=== PATIENT | male | born 1995 | race Caucasian/White ===

== ENCOUNTER 2016-11-28 00:16 | Emergency (ER) | payer BC ==
[~2016-11-28] VITALS: Ht 171.5 cm; Wt 76.7 kg
[2016-11-28 00:21] VITALS: Ht 171.5 cm; Wt 76.7 kg
[2016-11-28] MEDS ORDERED: MULT-506 PO (00:27)
[2016-11-28] MEDS ORDERED: KETOROLAC TROMETHAMINE 60 MG/2 ML VIAL IM STA (00:34)
[2016-11-28] MEDS ORDERED: CYCLOBENZAPRINE HCL 5 MG TAB PO STA (00:34)
--- NOTE | 2016-11-28 01:08 | EMERGENCY ROOM VISIT NOTE ---
History Report prepared by Yuriy: Yoav Liriano Under the Supervision of: Dr. Kelly Mendosa D.O. First contact with patient: 00:19 Chief Complaint: LEG PAIN,LEG INJURY Stated Complaint: PAIN IN LEFT HAMSTRING History of Present Illness The patient is a 21 year old male who presents to the Emergency Room with complaints of constant left leg pain that started prior to arrival. He rates his pain as a 5/10 in severity. He reports that his pain is worsened with extending his leg straight. The patient states that he was competing in a drag show at [employer] and jumped off of a three foot table. He reports that he did a forward split and landed on the ground. He states that as he got he his leg tensed up and he fell back down. The patient reports that his pain in his left posterior leg began to worsen and then remained constant. He admits that he also received an abrasion to his right knee. The patient reports that he did not do this kind of split in the past. He is accompanied by his friend who said that he heard a snap when the patient did the split. The patient denies a leg injury in the past, any alcohol consumption, abdominal pain, hitting his head, LOC, and a history of heart problems. Source of History: patient Onset: prior to arrival Position: leg (left) Symptom Intensity: 5/10 Timing: constant Modifying Factors (Worsening): other (extending his left leg) Associated Symptoms: No LOC, No abdominal pain Review of Systems See HPI for pertinent positives & negatives. A total of 10 systems reviewed and were otherwise negative. Past Medical & Surgical The patient reports no medical or surgical history. Family History Cancer Diabetes mellitus Hypertension Social History Smoking Status: Never Smoker Smokeless Tobacco Use: No Alcohol Use: occasionally Drug Use: none Housing Status: lives with roommate Occupation Status: [employer] Current/Historical Medications Scheduled Multivitamin (Multivitamin), 1 TAB PO DAILY Scheduled PRN Oxycodone/Acetaminophen 5MG/325MG (Percocet 5MG/325MG), 1-2 TABLETS PO Q4H PRN for Pain Allergies Coded Allergies: Shellfish (Verified Allergy, Severe, HIVES-SOB, 11/28/16) Cat Dander (Verified Allergy, Intermediate, ITCHY EYES, SNEEZING, RUNNY NOSE, 11/28/16) Physical Exam Vital Signs Date Time Temp Pulse Resp B/P (MAP) Pulse Ox O2 Delivery O2 Flow Rate FiO2 11/28/16 06:00 37.4 74 18 136/81 97 11/28/16 05:55 74 18 136/81 97 Room Air 11/28/16 04:55 94 18 141/75 98 Room Air 11/28/16 03:13 88 16 110/72 98 Room Air 11/28/16 01:37 90 18 149/89 98 Room Air 11/28/16 00:21 37.4 98 16 146/83 98 Room Air Physical Exam HEENT: Head - normocephalic and atraumatic Pupils are equal, round, and reactive to light. Extraocular eye muscles are intact, and sclera are anicteric. Nose - moist nasal mucosa without discharge. Mouth - moist buccal mucosa. Neck: Supple; no cervical lymphadenopathy Heart: Regular rate and rhythm. There is a normal S1 and S2 with no murmurs, clicks, or gallops appreciated. Lungs: Clear to auscultation bilaterally with no wheezes, rales, or rhonchi. Abdomen: Soft, completely nontender, nondistended, with good bowel sounds. There are no palpable pulsatile masses or hepatosplenomegaly. There is no guarding, rigidity, or rebound noted. Extremities: No evidence of cyanosis, clubbing, or edema. There are easily palpable peripheral pulses. The patient has significant pain with palpation over the posterior mid hamstring. He has significant edema in that area. There is currently no discoloration to the skin. He has exquisite tenderness with flexion at the knee on the left. Skin: warm and dry with good turgor and no rashes. Medical Decision & Procedures ER Provider Diagnostic Interpretation: Radiology results as stated below per my review and the radiologist's interpretation: MRI - LEFT HAMSTRING Lateral hamstring avulsion involving at least the long head of biceps and the semi-tendinosis. Tendon stew retracted more than 3 cm from the tuberosity. Extensive adjacent fluid. Radiologist: Zeke Doran M.D. Medications Administered Medications (Trade) Dose Ordered Sig/Janna Route Start Time Stop Time Status Last Admin Dose Admin Ketorolac Tromethamine (Toradol Inj) 60 mg NOW STAT IM 11/28/16 00:34 11/28/16 00:35 DC 11/28/16 00:39 60 MG Cyclobenzaprine HCl (Flexeril Tab) 5 mg NOW STAT PO 11/28/16 00:34 11/28/16 00:35 DC 11/28/16 00:39 5 MG Hydromorphone HCl (Dilaudid Inj) 1 mg NOW STAT IV 11/28/16 01:15 11/28/16 01:16 DC 11/28/16 01:29 1 MG Oxycodone/ Acetaminophen (Percocet 5/ 325MG Home Pack) 1 homepack UD ONCE PO 11/28/16 05:45 11/28/16 05:46 DC 11/28/16 05:45 1 HOMEPACK Procedure Medications administered include: Flexeril Tab 5 mg PO, Toradol Injection 60 mg IM, Dilaudid Injection 1 mg IV ED Course 0025: The patient was evaluated in room A11B. A complete history and physical examination were performed. Nursing notes and previous electronic medical records were reviewed. 0034: Ordered Flexeril Tab 5 mg PO, Toradol Injection 60 mg IM. 0115: The patient continued to complain of severe pain and an IV lock was initiated. I Ordered Dilaudid Injection 1 mg IV. The patient went for MRI of the left hamstring 0313: I reevaluated the patient and he feels better after the pain medication. 0515: I discussed the patient's case with Dr. Foster, [facility]. He reports that the patient is able to go home with pain medication. He recommends that the patient has an outpatient follow up with [facility]. 0520: Upon reevaluation, the patient is resting comfortably. I discussed findings and results with the patient. I discussed his treatment plan, which includes a knee immobilizer to remind him not to flex his knee. He verbalized agreement of the treatment plan. The patient was discharged home. Medical Decision The patient is a 21 year old male who presents to the ED with complaints of constant left leg pain that started prior to arrival. Differential diagnosis includes hamstring rupture and hamstring strain. The patient jumped from a table landing a splits on the floor causing significant trauma to the left hamstring. MRI showed significant avulsion to the left hamstring. The patient was given Percocet to use for pain. He was warned of the hazards of opioid addiction. I've encouraged him to call [facility] for follow-up as directed by Dr. Foster. He will use crutches and keep the left hamstring iced. [place] Drug [place] Search Results: patient reviewed within database, no issues identified Medication Reconcilliation Current Medication List: was personally reviewed by me Blood Pressure Screening Patient's blood pressure: Elevated blood pressure Blood pressure disposition: Elevated BP felt to be situational (due to pain) Consults Time Called: 514 Consulting Physician: Dr. Foster, [facility] Returned Call: 05 I discussed the patient's case with Dr. Foster, [facility]. He reports that the patient is able to go home with pain medication. He recommends that the patient has an outpatient follow up with [facility]. Impression Primary Impression: Avulsion of left hamstring muscle Scribe Attestation The scribe's documentation has been prepared under my direction and personally reviewed by me in its entirety. I confirm that the note above accurately reflects all work, treatment, procedures, and medical decision making performed by me. Departure Information Dispostion Home / Self-Care Prescriptions Oxycodone/Acetaminophen 5MG/325MG (PERCOCET 5MG/325MG) Tab 1-2 TABLETS PO Q4H Y for Pain, #20 TAB Prov: Kelly Mendosa D.O. 11/28/16 Forms HOME CARE DOCUMENTATION FORM, IMPORTANT VISIT INFORMATION Patient Instructions My [facility] [employer] Additional Instructions Rest. Wear the knee immobilizer only for comfort while ambulating. Use crutches to ambulate. Percocet - 1-2 tabs. every 4 hours for pain. Apply ice to hamstring Problem Qualifiers Primary Impression: Avulsion of left hamstring muscle Encounter type: initial encounter Qualified Codes: S76.392A - Other specified injury of muscle, fascia and tendon of the posterior muscle group at thigh level, left thigh, initial encounter
[2016-11-28] MEDS ORDERED: HYDROmorphone INJ 1 MG/ML SYR IV STA (01:15)
[2016-11-28] MEDS ORDERED: OXYC-57 PO (05:32)
[2016-11-28] MEDS ORDERED: PERCOCET HOME PACK PO ONE (05:45)
[2016-11-28 06:00] VITALS: BP 136/81; PULSE 74; TEMP 37.4; O2SAT 97
--- NOTE | 2016-11-28 06:44 | DIAGNOSTIC IMAGING REPORT ---
MRI OF THE LEFT THIGH WITHOUT CONTRAST CLINICAL HISTORY: Left hamstring pain. COMPARISON STUDY: No previous studies for comparison. TECHNIQUE: Utilizing 1.5 Adelina magnet and dedicated coil, multiplanar, multiecho imaging of the left thigh with specific attention to the hamstrings was performed without intravenous contrast. FINDINGS: Note is made of a left hamstrings tear. Specifically, there is extensive edema with possible hemorrhage along the proximal aspects of the left hamstrings, involving the biceps femoris, semitendinosus and semimembranosus. At least 2 of these tendons are retracted 5 cm inferiorly. These are avulsed from the ischial tuberosity. No marrow edema or marrow replacement is present. No additional muscular abnormalities are identified within the left side. The left femur is within normal limits. Visualized portions of the pelvis are unremarkable. IMPRESSION: Findings consistent with a left hamstrings tear with avulsion from the ischial tuberosity. At least 2 of the tendons are retracted 5 cm inferiorly with associated edema and hemorrhage. Electronically signed by: Tej Horta M.D. 11/28/2016 6:42 AM Dictated Date/Time: 11/28/2016 6:32 AM
== END 2016-11-28 06:01 | disposition home or self-care (01) ==
LOC: C.EDA 00:19
DX: S76.392A Other specified injury of muscle, fascia and tendon of the posterior muscle group at thigh level, left thigh, initial encounter (principal); S80.211A Abrasion, right knee, initial encounter; W17.89XA Other fall from one level to another, initial encounter; Y93.39 Activity, other involving climbing, rappelling and jumping off; Y99.8 Other external cause status; Y92.29 Other specified public building as the place of occurrence of the external cause; Z83.3 Family history of diabetes mellitus; Z82.49 Family history of ischemic heart disease and other diseases of the circulatory system

== ENCOUNTER → 2016-11-28 | Outpatient (CLI) | payer BC ==
[~2016-11-28] MED LIST: MULT-506 PO; OXYC-57 PO
--- NOTE | 2016-11-28 11:42 | DIAGNOSTIC IMAGING REPORT ---
PELVIS 1 OR 2 VIEWS CLINICAL HISTORY: LEFT PROXIMAL HAMSTRING TENDON TEAR. COMPARISON STUDY: MRI of the left thigh November 28, 2016. FINDINGS: The sacroiliac joints and symphysis pubis are intact. No acute fracture is identified. No avulsion fracture is identified on this exam. No osseous lesion is identified. IMPRESSION: No avulsion fracture identified within the pelvis. Electronically signed by: Tej Horta M.D. 11/28/2016 11:40 AM Dictated Date/Time: 11/28/2016 11:37 AM
== END | disposition home or self-care (01) ==
LOC: C.RDSM 12:36
PROVIDERS: ATTEND Physician Assistant
DX: S76.312A Strain of muscle, fascia and tendon of the posterior muscle group at thigh level, left thigh, initial encounter (principal); X58.XXXA Exposure to other specified factors, initial encounter

== ENCOUNTER → 2016-12-04 | Day surgery (SDC) | payer BC ==
[2016-12-02 09:24] VITALS: Ht 171.5 cm; Wt 76.8 kg
[~2016-12-04] VITALS: Ht 171.5 cm; Wt 76.8 kg
[~2016-12-04] MED LIST changes: +ASPI325T39 PO; +ATROPINE SULFATE 0.1 MG/ML 5ML SYR IV PRN; +BUPIVACAINE/EPINEPHRINE 0.5% MPF 1:200,000 30 ML VIAL ONE; +CEFAZOLIN 2000MG IV PUSH 10 ML IV SCH; +DEXAMETHASONE SOD INJ 4 MG/ML VIAL IV PRN; +DEXAMETHASONE SOD INJ 4 MG/ML VIAL ONE; +EpHEDrine SULFATE INJ 50 MG/ML AMP IV PRN; +FENTANYL CITRATE INJ 50 MCG/1 ML 2 ML VIAL IV PRN; +FENTANYL CITRATE INJ 50 MCG/1 ML 2 ML VIAL ONE; +GLYCOPYRROLATE INJ 0.2 MG/ML VIAL ONE; +HYDR-5688 PO; +HYDROmorphone INJ 1 MG/ML SYR IV PRN; +IBUP-1450 PO; +KETOROLAC TROMETHAMINE 30 MG/ML VIAL IV. PRN; +LABETALOL HCL IV 5 MG/ML 20ML IV PRN; +LACTATED RINGER'S 1000ML 1,000 ML IV SCH; +LIDOCAINE HCL 2% 2 ML VIAL (20MG/ML) ONE; +LIDOCAINE/EPINEPHRINE 1% INJ 50 ML VIAL ONE; +METOCLOPRAMIDE HCL INJ 5 MG/ML 2 ML VIAL IV PRN; +MIDAZOLAM HCL 1 MG/ML 2ML VIAL ONE; +MoRPHine SULFATE 10 MG/ML CARP/VIAL IV PRN; +MoRPHine SULFATE 2 MG/ML CARP IV PRN; +MoRPHine SULFATE 4 MG/ML 1 ML CARP\\VIAL IV PRN; +NEOSTIGMINE METHYLSULFATE 5 MG/5 ML SYR ONE; +ONDA4TAB10 SL; +ONDANSETRON INJ 2 MG/ML 2 ML VIAL IV PRN; +ONDANSETRON INJ 2 MG/ML 2 ML VIAL ONE; +OXYCODONE/ACETAMINOPHEN 5-325 TAB PO PRN; +PHENYLEPHRINE 100MCG/ML 5ML SYR IV PRN; +PROMETHAZINE HCL INJ 12.5 MG in SODIUM CHLORIDE 0.9% 50ML 50 ML IV PRN; +PROPOFOL IV EMULSION 10 MG/ML 20 ML VIAL IV ONE; +ROCURONIUM BROMIDE 10 MG/ML 5 ML VIAL IV ONE; +SODIUM CHLORIDE 0.9% 1000ML 1,000 ML IV SCH
--- NOTE | 2016-12-04 10:55 | History & Physical Bridge Note ---
H&P Re-Evaluation Bridge Note: I have examined the patient, reviewed the History & Physical and in the interval since the performance of the History & Physical I have noted the following changes of clinical significance: No changes noted
--- NOTE | 2016-12-04 14:41 | [facility] Operative Report ---
Operative Report Operative Date Dec 04, 2016. Pre-Operative Diagnosis Left proximal hamstring tendon rupture Post-Operative Diagnosis Same as preop Procedure(s) Performed Left Proximal Hamstring Repair Surgeon Dr. Rai Agricultural Education Teacher Surgeon(s) Ramon Davila MD and Tiffany Ernandez PA-C Estimated Blood Loss 10 ML Findings Complete rupture of proximal hamstrings left leg Specimens None Drains none Anesthesia Gen. Complication(s) None Disposition Recovery Room / PACU Implants 3 4.5 mm bio absorbable composite corkscrew anchors from [employer] Indications Patient's a 21-year-old male who did a split and injured his left hip. Evaluation has determined that he has a complete rupture of his proximal hamstring tendons. This is documented by exam and MRI. He is prior to treatment options and wishes to proceed with surgical intervention Description of Procedure Form consent was obtained. The patient was identified as Jorge L Baez. He identified the operative site as the left posterior hip. Preoperative surgical timeout was performed preoperative dose of IV antibiotics given. He was taken to the operating room positioned supine on the hospital stretcher. The anesthetic was administered. He was then positioned prone. A padded pillow was placed at his hips to flex the hips and improve exposure. Chest rolls were utilized. Genitals were comfortably positioned. He had nipple rings and which could not be removed and these were taped and was taken to ensure there was no pressure. The arms were held abducted with the elbows below the level of the shoulder and the arms were forward flexed on the arm boards. Padding was utilized under the knees the body was secured to the table drapes were placed around the hip area which was shaved and preprepped with chlorhexidine scrub. The left leg was then prepped and draped in the usual sterile fashion with the leg held in a stockinette. DVT prophylaxis with aspirin postoperatively. Early mobility. A gluteal skin crease incision was made of about 8-10 cm in length. Blunt dissection was performed down through the subcutaneous tissues until the posterior crural fascia was identified. The posterior cutaneous nerve of the thigh was not encountered. The gluteus sara was located more superior. A longitudinal incision was made and was palpated to be the hamstring fascia. His revealed the completely ruptured hamstring tendons which were easily retrieved and tagged. Immediately the sciatic nerve was identified laterally and traced proximally. Retractors were inserted over the ischial bone in direct contact with the bone. Care was taken at all times to preserve and protect the sciatic nerve. It appeared that this was a complete rupture. The lateral portion of the issue him was then where the hemorrhage and damage was from the avulsion was prepared with a rongeur and curet down to a bed of bleeding bone. This was an area that was the whole width of the bone and about 4 cm in length. 3 Bio-Corkscrew anchors were inserted superior central meet mid lateral and inferior medial and a triangular type fashion. These were double loaded with # 2 nonabsorbable sutures. One limb from each of these was passed in a running down than up Krakw stitch. The other limb was passed in a horizontal mattress fashion. The the hamstring tendon was approximated to the bone the tensioning sutures were pulled to cinch the tendon down to the bone and then each of the Krakw stitches was tied followed by the horizontal mattress to. When doing this the knee was held at 90 flexion. After the repair the sutures were cut and the knee could be fully extended without any difficulty or tension on the repair. Irrigation was performed including Betadine lavage the hamstring sheath was reapproximated with 0 Vicryl. The skin was closed with 2-0 Vicryl and 4-0 Monocryl subcuticular stitch and then covered over with Dermabond. The area was anesthetized with 1% lidocaine and half percent Marcaine both containing epinephrine. A soft sterile dressing was applied. The patient was returned to the's supine position a hip abduction brace was applied limiting hip flexion to 15 the leg was left free. Patient then awakened from anesthesia without difficulty taken to the recovery room in stable condition there were no specimens or complications. Counts were correct in the case. Blood loss was minimal. At the conclusion of the operations both patient's family informed of my findings detailed postoperative instructions were given. He is not to flex the hip beyond 15 he can have movement of the knee as tolerated. We'll protect the hamstring repair he can be toe touch weightbearing and crutches. He 'll follow up next week for therapy. Aspirin for DVT prophylaxis. I attest to the content of the Intraoperative Record and any orders documented therein. Any exceptions are noted below.
--- NOTE | 2016-12-04 15:05 | Discharge Instructions-SurgCtr ---
Discharge Instructions Date of Service Dec 04, 2016. Visit Reason for Visit: Left Proximal Hamstring Rupture Discharge Discharge Diagnosis / Problem: left proximal hamstring rupture Discharge Goals Goal(s): Decrease discomfort, Improve function, Increase independence Activity Recommendations Activity Limitations: per Instructions/Follow-up section Weightbearing Status: Left toe touch (with crutches) Anesthesia . Post Anesthesia Instructions: If you have had General Anesthesia or IV Sedation: * Do not drive today. * Resume driving when surgeon permits. * Do not make important decisions or sign legal documents today. * Call surgeon for: 1. Temperature elevations greater than 101 degrees F. 2. Uncontrollable pain. 3. Excessive bleeding. 4. Persistent nausea and vomiting. 5. Medication intolerance (nausea, vomiting or rash). * For nausea and vomiting use only clear liquids such as: tea, soda, bouillon until nausea subsides, then gradually increase diet as tolerated. * If you have any concerns or questions, call your surgeon's office. If physician is unavailable and it is an emergency, call 911 or go to the nearest emergency room. . Instructions / Follow-Up Instructions / Follow-Up DIET: * Resume previous diet. MEDICATIONS: * Please take your prescriptions as instructed at your pre-op appointment and/ or see medication discharge instructions listed above. * If concerns develop, call your physician's office at . * Take Percocet or [place] 1-2 tabs every 4-6 hours as needed for pain. Do not take together. Take one or the other. * Start aspirin 325 mg 1 tab twice daily tomorrow with food. Take for 21 days after surgery SPECIAL CARE INSTRUCTIONS: * Ice to left buttock as needed for pain and swelling * Elevate left lower extremity as needed for pain and swelling. * Keep dressing clean, dry, intact. Do not remove * Keep brace on left hip at all times. Okay to loosen or tighten straps as needed for comfort. * Use crutches to assist with ambulation at all times. * You may toe-touch weight-bear left lower extremity with the assistance of crutches. * Your surgical extremity may be discolored due to prepping agents used on the skin. A bluish-green tint is a normal variant and should not cause alarm. Call your doctor at [phone] if: * Temperature above 101 degrees * Pain not relieved by pain medicine ordered * There is increased drainage or redness from any incision * You have any unanswered questions, problems or concerns. FOLLOW UP VISIT: * If not already scheduled, please call the office at to schedule a follow-up appointment. * You have a physical therapy appointment on 12/09/2016 at 9 AM * You have a follow-up with Dr. Rai on 12/15/2016 at 4:15 PM Diet Recommendations Home Diet: no limitations, resume previous diet Procedures Procedures Performed: Left Proximal Hamstring Repair Pending Studies Studies pending at discharge: no Medical Emergencies . Who to Call and When: Medical Emergencies: If at any time you feel your situation is an emergency, please call 911 immediately. . Non-Emergent Contact Non-Emergency issues call your: Surgeon Call Non-Emergent contact if: temperature is above 101, your pain is not controlled, wound has increased drainage, wound has increased redness, wound has increased pain, you have any medication questions . . "Provider Documentation" section prepared by Tiffany Ernandez. . [place] Drug [place] Search Results: patient reviewed within database, no issues identified
--- NOTE | 2016-12-04 15:08 | [facility] Operative Report ---
Operative Report Operative Date Dec 04, 2016. Pre-Operative Diagnosis Left proximal hamstring tendon rupture Post-Operative Diagnosis Same as preop Procedure(s) Performed Left Proximal Hamstring Repair Surgeon Dr. Rai [employer] Surgeon(s) Ramon Davila MD and Tiffany Ernandez PA-C Estimated Blood Loss 10 ML Findings Left proximal hamstring tendon rupture Specimens None Drains none Anesthesia Gen. Complication(s) None Disposition Recovery Room / PACU (stable) Indications Patient is a 21-year-old male injuring his left hamstring earlier in the week. He had immediate pain and presented to the emergency room. He had an MRI of his left hip which showed avulsion of his left proximal hamstring tendons. He is referred to our office for orthopedic evaluation and treatment. Surgical intervention was recommended. He agreed to proceed with surgery. Risks and complications were discussed. Informed consent obtained. Description of Procedure Patient was taken to the operating room and placed under general anesthesia. He was given 2 g of IV Ancef for surgical prophylaxis. Timeout performed. He was placed in the prone position. He was prepped and draped in routine sterile fashion. I was present during the entire case, please see Dr. Rai's operative report for further detail. He was awakened and transferred to the recovery room in stable condition. I attest to the content of the Intraoperative Record and any orders documented therein. Any exceptions are noted below.
[2016-12-04 15:40] VITALS: TEMP 37
--- NOTE | 2016-12-04 16:06 | Anesthesia Progress Nt - [facility] ---
Anesthesia Post Op Note Date & Time Dec 04, 2016 at 16:05 Vital Signs Pain Intensity: 3.0 Vital Signs Past 12 Hours Date Time Temp Pulse Resp B/P (MAP) Pulse Ox O2 Delivery O2 Flow Rate FiO2 12/04/16 15:40 37 93 16 152/78 (102) 98 Room Air 12/04/16 15:30 37.2 139/70 12/04/16 15:26 84 13 97 12/04/16 15:26 82 13 12/04/16 15:25 136/73 12/04/16 15:21 78 20 12/04/16 15:21 79 20 143/72 98 12/04/16 15:16 87 16 97 12/04/16 15:16 88 16 12/04/16 15:15 121/90 12/04/16 15:11 82 19 12/04/16 15:11 84 19 139/57 100 12/04/16 15:06 90 13 100 12/04/16 15:06 90 13 12/04/16 15:05 124/59 12/04/16 15:01 74 21 100 12/04/16 15:01 74 21 12/04/16 15:00 123/55 12/04/16 14:56 36.8 84 20 113/54 99 Mask 6 12/04/16 14:56 80 20 12/04/16 14:56 80 20 113/54 100 12/04/16 08:39 37.1 73 22 128/77 (94) 98 Room Air Notes Mental Status: alert / awake / arousable, participated in evaluation Pt Amnestic to Procedure: Yes Nausea / Vomiting: adequately controlled Pain: adequately controlled Airway Patency, RR, SpO2: stable & adequate BP & HR: stable & adequate Hydration State: stable & adequate Anesthetic Complications: no major complications apparent Doing well. Pain controlled, no n/v. VSS. Ready for d/c
[2016-12-04 16:13] VITALS: BP 140/73; PULSE 95; O2SAT 99
== END | disposition home or self-care (01) ==
LOC: X.SURG 08:25
PROVIDERS: ATTEND Physical Medicine & Rehabilitation Sports Medicine
DX: S76.312A Strain of muscle, fascia and tendon of the posterior muscle group at thigh level, left thigh, initial encounter (principal); X50.9XXA Other and unspecified overexertion or strenuous movements or postures, initial encounter; I10 Essential (primary) hypertension; E16.1 Other hypoglycemia